=== PATIENT | female | born 1970 | race Caucasian/White ===

== ENCOUNTER 2021-05-07 08:57 | Emergency (ER) | payer BC ==
[2021-05-07] MEDS ORDERED: Lidocaine 1% 10 ML MDV INJECT ONE (09:10)
[2021-05-07] MEDS ORDERED: Ondansetron 4 MG Tab.DIS PO ONE (09:17)
--- NOTE | 2021-05-07 10:10 | EDM.PDOC ---
ED HPI GENERAL MEDICAL PROBLEM - General Chief Complaint: Laceration Stated Complaint: R THUMB LAC Time Seen by Provider: 05/07/21 09:10 Source of Information: Reports: Patient History Limitations: Reports: No Limitations - History of Present Illness INITIAL COMMENTS - FREE TEXT/NARRATIVE: The patient presents with a laceration to the right thumb and index finger. She was cutting onions with a device for slicing and she cut her fingers. She has a u shaped flap laceration to the right thumb and superficial cut to the right index finger. She is left handed and her tetanus is up to date. Onset: Sudden Duration: Minutes: Location: Reports: Upper Extremity, Right (thumb and index finger) Quality: Reports: Sharp Severity: Mild Improves with: Reports: None Worsens with: Reports: None Associated Symptoms: Reports: No Other Symptoms Right Hand Pain Score (Numeric/FACES): 6 - Related Data Allergies Allergy/AdvReac Type Severity Reaction Status Date / Time aspirin Allergy Hives Verified 05/07/21 09:05 mold Allergy Cannot Verified 05/07/21 09:05 Remember tree and shrub pollen Allergy Cannot Verified 05/07/21 09:05 Remember cats Allergy Cannot Uncoded 09/10/18 14:47 Remember dust Allergy Cannot Uncoded 09/10/18 14:47 Remember Home Meds: Home Meds Albuterol Sulfate [Proair Hfa] 1 - 2 puff INH Q4H PRN 09/10/18 [History] Albuterol/Ipratropium [DuoNeb 3.0-0.5 MG/3 ML] 1 dose NEB Q4H PRN 09/10/18 [History] Furosemide 20 mg PO DAILY 09/10/18 [History] Losartan [Cozaar] 100 mg PO DAILY 09/10/18 [History] Naproxen 500 mg PO BID PRN 09/10/18 [History] Potassium Chloride 20 meq PO DAILY 09/10/18 [History] Past Medical History HEENT History: Reports: Allergic Rhinitis, Otitis Media, Other (See Below) Other HEENT History: right eustachian tube dysfunction, ear drainge from right ear, hearing loss, right ear otitis media, right ear impacted cerumen Cardiovascular History: Reports: Hypertension, Other (See Below) Other Cardiovascular History: peripheral edema Respiratory History: Reports: Asthma, Sleep Apnea Gastrointestinal History: Reports: None Genitourinary History: Reports: None OUTPLACEMENT CONSULTANT History: Reports: None Musculoskeletal History: Reports: Other (See Below) Other Musculoskeletal History: left knee pain Neurological History: Reports: Vertigo Psychiatric History: Reports: Other (See Below) Other Psychiatric History: fatigue Endocrine/Metabolic History: Reports: None Hematologic History: Reports: None Immunologic History: Reports: None Oncologic (Cancer) History: Reports: None Dermatologic History: Reports: Other (See Below) Other Dermatologic History: skin neoplasm - Past Surgical History Head Surgeries/Procedures: Reports: None HEENT Surgical History: Reports: Eye Surgery, Myringotomy w Tube(s), Tonsillectomy Cardiovascular Surgical History: Reports: None Respiratory Surgical History: Reports: None GI Surgical History: Reports: None Female Surgical History: Reports: Hysterectomy Endocrine Surgical History: Reports: None Neurological Surgical History: Reports: None Musculoskeletal Surgical History: Reports: Arthroscopic Knee Oncologic Surgical History: Reports: None Dermatological Surgical History: Reports: None Social & Family History - Tobacco Use Tobacco Use Status *Q: Never Tobacco User Second Hand Smoke Exposure: No - Caffeine Use Caffeine Use: Reports: Coffee - Recreational Drug Use Recreational Drug Use: No ED ROS GENERAL - Review of Systems Review Of Systems: See Below Constitutional: Reports: No Symptoms HEENT: Reports: No Symptoms Respiratory: Reports: No Symptoms Cardiovascular: Reports: No Symptoms Endocrine: Reports: No Symptoms GI/Abdominal: Reports: No Symptoms : Reports: No Symptoms Musculoskeletal: Reports: Other (right thumb and index finger lacerations) ED EXAM, SKIN/RASH Exam: See Below Exam Limited By: No Limitations General Appearance: Alert, No Apparent Distress Ears: Normal External Exam Nose: Normal Inspection Head: Atraumatic, Normocephalic Neck: Normal Inspection Respiratory/Chest: No Respiratory Distress Extremities: Other (2.5cm U shaped laceration to the right thumb and a superfical small 1cm laceration to the right index finger. Both fingers have good sensation and capillary refill distally.) ED SKIN PROCEDURES - Laceration/Wound Repair Right Digit - 1st (Thumb) Appearance: Subcutaneous, Irregular (U shaped) Distal NVT: Neuro & Vascular Intact, No Tendon Injury Anesthetic Type: Local Local Anesthesia - Lidocaine (Xylocaine): 1% Plain Skin Prep: Saline Exploration/Debridement/Repair: Wound Explored, In a Bloodless Field, Explored to Base Closed with: Sutures Lac/Wound length In cm: 2.5 Suture Size: 5-0 # of Sutures: 8 Suture Type: Nylon, Interrupted, Simple Tetanus Status Addressed: Yes Complications: No Course - Vital Signs Last Recorded V/S: Last Vital Signs Temp 98.0 F 05/07/21 09:05 Pulse 97 05/07/21 09:05 Resp 15 05/07/21 09:05 BP 186/68 H 05/07/21 09:05 Pulse Ox 100 05/07/21 09:05 - Orders/Labs/Meds Meds: Medications Discontinued Medications Generic Name Dose Route Start Last Admin Trade Name Shaggy PRClaudine Reason Stop Dose Admin Lidocaine HCl 10 ml 05/07/21 09:10 05/07/21 09:14 Lidocaine 1% 10 Ml Mdv INJECT 05/07/21 09:11 10 ml ONETIME ONE Administration Ondansetron HCl 4 mg 05/07/21 09:17 05/07/21 09:21 Ondansetron 4 Mg Tab.Dis PO 05/07/21 09:18 4 mg ONETIME ONE Administration - Re-Assessments/Exams Free Text/Narrative Re-Assessment/Exam: 05/07/21 10:08 I sutured her thumb. Her index finger does not need sutures. Departure - Departure Time of Disposition: 10:10 Disposition: Home, Self-Care 01 Condition: Good Clinical Impression: Laceration of right thumb Qualifiers: Encounter type: initial encounter Damage to nail status: without damage Foreign body presence: without foreign body Qualified Code(s): S61.011A - Laceration without foreign body of right thumb without damage to nail, initial encounter - Discharge Information *PRESCRIPTION DRUG MONITORING PROGRAM REVIEWED*: Not Applicable *COPY OF PRESCRIPTION DRUG MONITORING REPORT IN PATIENT DEVIN: Not Applicable Referrals: Lore Anglin PA-C [Primary Care Provider] - 1 Week Additional Instructions: Soak your thumb in warm soapy water 2 times per day and apply antibiotic oi ntment after. Have the sutures removed in 7 to 10 days. Look for any signs of infection such as redness, swelling, pain or discharge. If you see any of these signs, please return or see your doctor. You may need oral antibiotics. Sepsis Event Note (ED) - Evaluation Sepsis Screening Result: No Definite Risk - Focused Exam Vital Signs: Vital Signs Temp Pulse Resp BP Pulse Ox 05/07/21 09:05 98.0 F 97 15 186/68 H 100
== END 2021-05-07 10:35 | disposition home or self-care (01) ==
LOC: JD.ED 08:57
DX: S61.011A Laceration without foreign body of right thumb without damage to nail, initial encounter (principal); S61.210A Laceration without foreign body of right index finger without damage to nail, initial encounter; I10 Essential (primary) hypertension; Z91.09 Other allergy status, other than to drugs and biological substances; Z91.048 Other nonmedicinal substance allergy status; Z88.8 Allergy status to other drugs, medicaments and biological substances; W26.8XXA Contact with other sharp object(s), not elsewhere classified, initial encounter
CPT/HCPCS: 12001; 99282; A9270

== ENCOUNTER 2023-08-30 06:57 | Day surgery (SDC) | payer BC ==
[~2023-08-30 06:57] MED LIST: Lactated Ringers 1,000 ML IV SCH; Sodium Chloride 0.9% 10 ML Syringe FLUSH PRN; Sodium Chloride 0.9% 10 ML Syringe FLUSH SCH
[2023-08-30] MEDS ORDERED: Propofol 200 MG/20 ML SDV ONE ×2 (07:09→08:09)
[2023-08-30] MEDS ORDERED: Lidocaine 1% 4 ML ONE (07:09)
[2023-08-30] MEDS ORDERED: fentaNYL 100 MCG/2 ML SDV ONE (07:09)
== END 2023-08-30 09:10 | disposition home or self-care (01) ==
LOC: JD.SDS 06:57
PROVIDERS: ATTEND Surgery
DX: Z12.11 Encounter for screening for malignant neoplasm of colon (principal); K57.30 Diverticulosis of large intestine without perforation or abscess without bleeding; K52.9 Noninfective gastroenteritis and colitis, unspecified; K62.89 Other specified diseases of anus and rectum; J45.909 Unspecified asthma, uncomplicated; E11.9 Type 2 diabetes mellitus without complications; I10 Essential (primary) hypertension; G47.33 Obstructive sleep apnea (adult) (pediatric); E66.9 Obesity, unspecified; Z91.048 Other nonmedicinal substance allergy status; Z79.85 Long-term (current) use of injectable non-insulin antidiabetic drugs; Z79.899 Other long term (current) drug therapy; Z80.0 Family history of malignant neoplasm of digestive organs; Z68.39 Body mass index [BMI] 39.0-39.9, adult
CPT/HCPCS: 45380; J2704; J3010; J7120; 00812; J3490

== ENCOUNTER 2024-04-02 07:00 | Day surgery (SDC) | payer BC ==
[2024-04-02] MEDS: Lactated Ringers 1,000 ML IV SCH (07:15)
[2024-04-02] MEDS ORDERED: Lactated Ringers 1,000 ML IV SCH (07:30)
[2024-04-02] MEDS: oxyCODONE ER 10 MG TAB.ER PO SCH (07:35)
[2024-04-02] MEDS: Pregabalin 25 MG Cap PO SCH (07:35)
[2024-04-02] MEDS: Acetaminophen 325 MG Tab PO SCH (07:35)
[2024-04-02] MEDS ORDERED: Bupivacaine 0.25% 10 ML SDV ONE (07:36)
[2024-04-02] MEDS ORDERED: Triamcinolone Acetonide 40 MG/ML 1 ML SDV ONE (07:36)
[2024-04-02] MEDS: Pregabalin 25 MG Cap PO ONE (07:37)
[2024-04-02] MEDS: Acetaminophen 325 MG Tab PO ONE (07:37)
[2024-04-02] MEDS: oxyCODONE ER 10 MG TAB.ER PO ONE (07:37)
[2024-04-02] MEDS ORDERED: Bupivacaine 0.5% 30 ML SDV ONE (08:04)
[2024-04-02] MEDS ORDERED: Propofol 200 MG/20 ML SDV ONE (08:05)
[2024-04-02] MEDS ORDERED: Midazolam 1 MG/ML 2 ML SDV ONE (08:05)
[2024-04-02] MEDS ORDERED: dexmedeTOMIDine HCl 200 MCG/2 ML SDV ONE (08:05)
[2024-04-02] MEDS ORDERED: ceFAZolin 2 GM Vial ONE (08:46)
[2024-04-02] MEDS ORDERED: Ondansetron 4 MG/2 ML SDV ONE (08:47)
[2024-04-02] MEDS ORDERED: fentaNYL 100 MCG/2 ML SDV IVPUSH PRN (08:59)
[2024-04-02] MEDS ORDERED: Ondansetron 4 MG/2 ML SDV IVPUSH PRN (08:59)
[2024-04-02] MEDS ORDERED: HYDROmorphone 0.5 MG/0.5 ML Syringe IVPUSH PRN (08:59)
[2024-04-02] MEDS ORDERED: Lactated Ringers 1,000 ML IV ONE (09:15)
[2024-04-02] MEDS: Morphine 8 MG, EPINEPHrine 0.3 MG, Cefuroxime 750 MG, Ketorolac 30 MG, Sodium Chloride ... PRN (09:36)
[2024-04-02] MEDS: Vancomycin 1 GM SDV ONE (09:43)
[2024-04-02] MEDS: Tranexamic Acid 1,000 MG/10 ML Vial ONE (09:43)
[2024-04-02] MEDS: oxyCODONE 5 MG Tab PO PRN (13:34)
== END 2024-04-02 15:40 | disposition home or self-care (01) ==
LOC: JD.SDS 07:00
PROVIDERS: ATTEND Orthopaedic Surgery
DX: M17.0 Bilateral primary osteoarthritis of knee (principal); J45.909 Unspecified asthma, uncomplicated; E11.9 Type 2 diabetes mellitus without complications; E78.00 Pure hypercholesterolemia, unspecified; I10 Essential (primary) hypertension; E66.9 Obesity, unspecified; G47.33 Obstructive sleep apnea (adult) (pediatric); Z91.09 Other allergy status, other than to drugs and biological substances; Z79.899 Other long term (current) drug therapy; Z79.01 Long term (current) use of anticoagulants; Z68.36 Body mass index [BMI] 36.0-36.9, adult; Z88.8 Allergy status to other drugs, medicaments and biological substances
CPT/HCPCS: 0055T; 20610; 27447; 73560; 97110; 97161; A9270; C1713; C1776; J0171; J0665; J0690; J0697; J1596; J1885; J2250; J2270; J2405; J2704; J3301; J3370; J7120; 01402; J3490